=== PATIENT | female | born 1975 | race Two or more races ===

== ENCOUNTER → 2017-09-10 | Outpatient (CLI) | payer MEDICAID | LOC: FIMAGING 08:23 | DX: Z12.31 Encounter for screening mammogram for malignant neoplasm of breast (principal) | CPT/HCPCS: G0202 ==

== ENCOUNTER → 2019-01-14 | Outpatient (CLI) | payer OTHER | LOC: FIMAGING 07:30 | PROVIDERS: ATTEND Nurse Practitioner Women's Health | DX: Z12.31 Encounter for screening mammogram for malignant neoplasm of breast (principal) ==